=== PATIENT | male | born 1950 | race African-American/Black ===

== ENCOUNTER 2020-07-29 23:04 | Emergency (ER) | payer MEDICARE ==
[~2020-07-29] VITALS: Ht 177.8 cm; Wt 114.0 kg
[2020-07-30 00:02] VITALS: BP 145/80
== END 2020-07-30 00:03 | disposition home or self-care (01) ==
LOC: ER 23:04 → EDBD 23:04 → ER 07-30 00:03
DX: E11.649 Type 2 diabetes mellitus with hypoglycemia without coma (principal); I10 Essential (primary) hypertension
CPT/HCPCS: 82962; 93005; 99283